=== PATIENT | female | born 1940 | race Caucasian/White ===

== ENCOUNTER 2018-05-19 12:26 | Inpatient (IN) | payer OTHER ==
[2018-05-19] MEDS ORDERED: HYDROmorphONE/DILAUDID 2 MG/ML INJ IVP ONE (12:34)
--- NOTE | 2018-05-19 12:38 | EDPHY ---
H & P Time Seen by Provider: 05/19/18 12:35 HPI/ROS: HPI: This is a 69-year-old female who presents with Chief Complaint: Left hip and elbow injury Location: Left hip and elbow Quality: Injury Duration: Prior to arrival Signs and Symptoms: No bleeding, no radiation, no numbness, no weakness, no tingling, no incontinence, + decreased range of motion, + swelling, + pain, no fever Timing: Acute Severity: 05/02 Context: Patient presents via EMS, for accidentally tripping over the curb prior to the [employer] football game this afternoon. She reports that she was walking up to the [place] and did not see the curb tripped over it. She then reports that she fell on her left side particularly her left hip and left elbow. Patient is right-hand dominant. She reports that she felt immediate pain in her left elbow on left hip. The pain remained constant and worsened with any movement. She was unable to ambulate on her own. EMS was called. Patient has a history of atrial fibrillation and takes Coumadin. She does not believe that she hit her head. Denies LOC/neck pain/dizziness/nausea/ vomiting/amnesia. Last meal was breakfast around 8:00 a.m. Modifying Factors: None Comment: ROS: A comprehensive 10 system review of systems is otherwise negative aside from elements mentioned in the history of present illness. MEDICAL/SURGICAL/SOCIAL HISTORY: Medical history: Atrial fibrillation, hypertension, hyperlipidemia Surgical history: Denies Social history: , retired, nonsmoker CONSTITUTIONAL: Polite and cooperative, mild distress elderly white female, awake and alert HEENT: Atraumatic and normocephalic, PERRL, EOMI. Wears glasses. no globe entrapment, no raccoon eyes. no Mario signs.Tympanic membranes clear. No tympanic membrane rupture. Nares patent; no septal hematoma. Oropharynx clear, no exudate and moist pink mucosa. No malocclusion. no dental trauma. Airway patent. No lymphadenopathy. NECK: supple, no midline tenderness, flexion 45 degrees, extension 45 degrees, right and left lateral flexion 45 degrees. No meningismus. Cardiovascular: Normal S1/S2, regular rate, regular rhythm, without murmur rub or gallop. PULMONARY/CHEST: Symmetrical and nontender. no crepitus. Clear to auscultation bilaterally. Good air movement. No accessory muscle usage. ABDOMEN: Soft, nondistended, nontender, no ecchymosis, no rebound, no guarding , no peritoneal signs, no masses or organomegaly. No CVAT. PELVIC: no pain with rocking; bilateral hips flexion 125 degrees, extension 30 degrees, with no pain internal rotation and no pain external rotation. BACK: No midline tenderness, no paraspinous spasm, deep tendon reflexes 2/2, no pain with straight leg raise EXTREMITIES: left hip is externally rotated and shortened. Strong pedal pulses 2/2. Tenderness over the greater trochanter. Refusal to move secondary to pain. Left ELBOW: Full extension to 180, flexion to 45, mild tenderness over medial epicondyle, mild tenderness over lateral epicondyle, moderate effusion/ecchymosis; + deformity. no clubbing, no cyanosis or edema. NEUROLOGICAL: no focal neuro deficits. GCS 15. SKIN: Warm and dry, pallor, no erythema. no rash. Good capillary refill. Source: Patient, Family, EMS Exam Limitations: No limitations Constitutional: Initial Vital Signs Temperature (C) 36.6 C 05/19/18 12:36 Heart Rate 76 05/19/18 12:36 Respiratory Rate 16 05/19/18 12:36 Blood Pressure 179/120 H 05/19/18 12:36 O2 Sat (%) 95 05/19/18 12:36 O2 Delivery Mode Room Air O2 (L/minute) 3 Allergies/Adverse Reactions: No Known Allergies Allergy (Unverified 05/19/18 12:39) Home Medications: Medication Instructions Recorded Balsalazide Disodium [Colazal (*)] 2,250 mg PO BID 05/19/18 Dorzolamide/Timolol [Cosopt (*)] 1 drops EACHEYE BID 05/19/18 Latanoprost 0.005% [Xalatan 0.005% 1 drops EACHEYE HS 05/19/18 (*)] Metoprolol Succinate Xr [Toprol Xl 25 mg PO DAILY 05/19/18 25 mg (*)] Pravastatin Sodium 20 mg PO HS 05/19/18 Quinapril HCl 5 mg PO DAILY 05/19/18 Triamcinolone Acetonide [Nasacort] 1 spray EACHNARE DAILY PRN 05/19/18 Warfarin Sodium [Coumadin 4MG (*)] [address] [facility]12 05/19/18 Warfarin Sodium [Coumadin 4MG (*)] 10 mg PO WE@12 05/19/18 Medical Decision Making - Diagnostics Imaging Results: Imaging Impressions Elbow X-Ray 05/19/18 12:34 Impression: Comminuted displaced left olecranon process fracture. Hip X-Ray 05/19/18 12:34 Impression: Angulated left humeral neck fracture. Head CT 05/19/18 12:35 Impression: Negative noncontrast CT of the brain. Results called to. Isela Holland PA-C at 1:30 PM at the time of the interpretation. Chest X-Ray 05/19/18 13:40 Impression: Negative chest. Procedures: Procedure: Splint placement. A left long-arm posterior Ortho Glass splint with 20 flexion was applied by Emergency Room pc technician. After application of the splint I returned and re- examined the patient. The splint was adequately immobilizing the joint and distal to the splint the patient's circulation and sensation was intact. ED Course/Re-evaluation: Vital signs reviewed and stable upon arrival. IV access and laboratory studies obtained including coags. Given 1 mg IV Dilaudid, IV Versed 2.5 mg and IV Zofran. Left hip x-ray, left elbow x-ray ordered Based on patient's age greater than 65 years and on Coumadin, head CT imaging ordered. 1310: At bedside with tech and imaging shows left femoral neck fracture, displaced olecranon fracture; placed in long-arm posterior splint with elbow at 20 flexion Labs reviewed and show INR 2.65, BUN 29, creatinine 1.1, H&H 13.2/39.3 Called by radiologist who advised that head CT scan shows no acute intracranial process. ED decision to consult Trauma/Orthopedics. Spoke with Dr. Aguillon who kindly agrees to admit patient-requests chest x-ray and type and screen. Spoke with Dr. Crespo's PAHeather, who consulted with her attending and agrees to consult on patient, requests long-arm posterior splint with 20 flexion and repeat lateral x-ray. Plan is for surgery today and requests for hospitalist consult regarding Concerta/FFP. Spoke with Dr. Ortega who kindly agrees to consult on the patient. No signs of neurovascular compromise/tenting of skin/compartment syndrome/ extremities and joints examined above and below area of concern and are neurovascularly intact. 1450: Chest x-ray my read shows no pneumothorax, rib fractures. This patient was seen under the supervision of my secondary supervising physician. I evaluated care for this patient independently. Discussed this patient with Dr. Tobar who did evaluate and examine the patient. Differential Diagnosis: Differential diagnosis includes but is not limited to olecranon fracture, radial fracture, ulnar fracture, elbow dislocation, hip dislocation, femur fracture. - Data Points Laboratory Results: Laboratory Results 05/19/18 12:30 05/19/18 12:30 05/19/18 05/19/18 05/19/18 12:50 12:30 12:30 WBC RBC Hgb Hct MCV MCH MCHC RDW Plt Count MPV Neut % (Auto) Lymph % (Auto) [place] % (Auto) Eos % (Auto) Baso % (Auto) Nucleat RBC Rel Count Absolute Neuts (auto) Absolute Lymphs (auto) Absolute Monos (auto) Absolute Eos (auto) Absolute Basos (auto) Absolute Nucleated RBC Immature Gran % Immature Gran # PT 28.2 SEC H SEC (12.0-15.0) INR 2.65 H (0.83-1.16) APTT 34.8 SEC SEC (23.0-38.0) Sodium 141 mEq/L mEq/L (135-145) Potassium 4.3 mEq/L mEq/L (3.3-5.0) Chloride 105 mEq/L mEq/L (97-110) Carbon Dioxide 24 mEq/l mEq/l (22-31) Anion Gap 12 mEq/L mEq/L (6-14) BUN 29 mg/dL H mg/dL (7-23) Creatinine 1.1 mg/dL H mg/dL (0.6-1.0) Estimated GFR 48 Glucose 106 mg/dL H mg/dL (70-100) Calcium 9.6 mg/dL mg/dL (8.5-10.4) Urine Color YELLOW Urine Appearance HAZY Urine pH 7.0 (5.0-7.5) Ur Specific [place] 1.019 (1.002-1.030) Urine Protein NEGATIVE (NEGATIVE) Urine Ketones NEGATIVE (NEGATIVE) Urine Blood NEGATIVE (NEGATIVE) Urine Nitrate NEGATIVE (NEGATIVE) Urine Bilirubin NEGATIVE (NEGATIVE) Urine Urobilinogen NEGATIVE EU EU (0.2-1.0) Ur Leukocyte Esterase NEGATIVE (NEGATIVE) Urine Glucose NEGATIVE (NEGATIVE) 05/19/18 12:30 WBC 4.73 10^3/uL 10^3/uL (3.80-9.50) RBC 4.29 10^6/uL 10^6/uL (4.18-5.33) Hgb 13.2 g/dL g/dL (12.6-16.3) Hct 39.3 % % (38.0-47.0) MCV 91.6 fL fL (81.5-99.8) MCH 30.8 pg pg (27.9-34.1) MCHC 33.6 g/dL g/dL (32.4-36.7) RDW 13.4 % % (11.5-15.2) Plt Count 226 10^3/uL 10^3/uL (150-400) MPV 10.4 fL fL (8.7-11.7) Neut % (Auto) 58.2 % % (39.3-74.2) Lymph % (Auto) 30.2 % % (15.0-45.0) [place] % (Auto) 10.8 % % (4.5-13.0) Eos % (Auto) 0.0 % L % (0.6-7.6) Baso % (Auto) 0.2 % L % (0.3-1.7) Nucleat RBC Rel Count 0.0 % % (0.0-0.2) Absolute Neuts (auto) 2.75 10^3/uL 10^3/uL (1.70-6.50) Absolute Lymphs (auto) 1.43 10^3/uL 10^3/uL (1.00-3.00) Absolute Monos (auto) 0.51 10^3/uL 10^3/uL (0.30-0.80) Absolute Eos (auto) 0.00 10^3/uL L 10^3/uL (0.03-0.40) Absolute Basos (auto) 0.01 10^3/uL L 10^3/uL (0.02-0.10) Absolute Nucleated RBC 0.00 10^3/uL 10^3/uL (0-0.01) Immature Gran % 0.6 % % (0.0-1.1) Immature Gran # 0.03 10^3/uL 10^3/uL (0.00-0.10) PT INR APTT Sodium Potassium Chloride Carbon Dioxide Anion Gap BUN Creatinine Estimated GFR Glucose Calcium Urine Color Urine Appearance Urine pH Ur Specific [place] Urine Protein Urine Ketones Urine Blood Urine Nitrate Urine Bilirubin Urine Urobilinogen Ur Leukocyte Esterase Urine Glucose Medications Given: Discontinued Medications Diazepam (Valium) 2.5 mg IVP EDNOW ONE Stop: 05/19/18 13:07 Last Admin: 05/19/18 13:11 Dose: 2.5 mg Hydromorphone HCl (Dilaudid) 1 mg IVP EDNOW ONE Stop: 05/19/18 12:35 Last Admin: 05/19/18 12:49 Dose: 1 mg Ondansetron HCl (Zofran) 4 mg IVP EDNOW ONE Stop: 05/19/18 12:35 Last Admin: 05/19/18 12:48 Dose: 4 mg Departure - Departure Disposition: [facility] Inpatient Acute Clinical Impression: Left displaced femoral neck fracture, Warfarin anticoagulation Closed fracture of left olecranon process Qualifiers: Encounter type: initial encounter Qualified Code(s): S52.022A - Displaced fracture of olecranon process without intraarticular extension of left ulna, initial encounter for closed fracture Condition: Fair
[2018-05-19 12:46] LABS: PLATELET COUNT 226 10^3/uL (150-400)
[2018-05-19] MEDS: ONDANSETRON 4 MG/2 ML VIAL IVP ONE (12:48)
[2018-05-19 12:54] LABS: INR 2.65 (0.83-1.16); PROTIME(PATIENT) 28.2 SEC (12.0-15.0)
[2018-05-19] MEDS ORDERED: DIAZEPAM 5 MG/ML 1 ML SYR IVP ONE (13:06)
[2018-05-19] MEDS ORDERED: ONDANSETRON 4 MG/2 ML VIAL IVP PRN ×2 (14:11→23:59)
[2018-05-19] MEDS ORDERED: LR 1,000 ML IV SCH ×2 (14:30→23:45)
[2018-05-19] MEDS ORDERED: ceFAZolin 2 GM/DEXTROSE 100 ML IV ONE (14:41)
--- NOTE | 2018-05-19 14:42 | PDGENHP ---
History and Physical - Chief Complaint left hip and elbow pain - History of Present Illness 77 y/o female visiting [place] with her and daughter-in law for the [employer] football game. She tripped on "cobblestones"near the entry of [place] landing on her left side breaking her fall with her left arm. She denies head injury, LOC. She was transported to [facility] ED and was seen by Isela Holland PA-C and trauma surgical consultation was requested. She was found to have fractures of the left elbow and left hip History Information - Allergies/Home Medication List Allergies/Adverse Reactions: No Known Allergies Allergy (Unverified 05/19/18 12:39) Home Medications: Balsalazide Disodium [Colazal (*)] 2,250 mg PO BID 05/19/18 [Last Taken 08:00] Dorzolamide/Timolol [Cosopt (*)] 1 drops EACHEYE BID 05/19/18 [Last Taken 08:00] Latanoprost 0.005% [Xalatan 0.005% (*)] 1 drops EACHEYE HS 05/19/18 [Last Taken 05/18/18 21:00] Metoprolol Succinate Xr [Toprol Xl 25 mg (*)] 25 mg PO DAILY 05/19/18 [Last Taken 05/19/18 08:00] Pravastatin Sodium 20 mg PO HS 05/19/18 [Last Taken 05/18/18 21:00] Quinapril HCl 5 mg PO DAILY 05/19/18 [Last Taken 05/19/18 08:00] Triamcinolone Acetonide [Nasacort] 1 spray EACHNARE DAILY PRN 05/19/18 [Last Taken 05/19/18 08:00] Warfarin Sodium [Coumadin 4MG (*)] 8 mg PO SUMOTUTHFRSA@12 05/19/18 [Last Taken 05/18/18 12:00] Warfarin Sodium [Coumadin 4MG (*)] 10 mg PO WE@12 05/19/18 [Last Taken 05/16/18] I have personally reviewed and updated: family history, medical history, social history, surgical history - Past Medical History atrial fibrillation, arthritis, hypertension, hyperlipidemia - Family History Positive for: non-pertinent - Social History Smoking Status: Former smoker Alcohol Use: None Drug Use: None Additional social history: here with and daughter in law/they live in [facility] Review of Systems Review of Systems: EENMT: Reports: ear pain, other (prior right retinal detachment with vision loss ) Cardiac: Reports: no symptoms Respiratory: Reports: no symptoms, orthopnea Genitourinary: Reports: no symptoms Muscolosketal: Reports: joint pain, joint swelling Neurological: Reports: other (denies paresthesias) Physical Exam Physical Exam: Temp Pulse Resp BP Pulse Ox 36.6 C 59 L 18 180/74 H 99 05/19/18 12:36 05/19/18 14:00 05/19/18 14:00 05/19/18 14:00 05/19/18 14:00 O2 (L/minute) 2 Constitutional: other (pleasant elderly female in mild distress) Eyes: PERRL, EOMI Ears, Nose, Mouth, Throat: moist mucous membranes, other (TMs clear with moderate cerumen in EACs) Cardiovascular: regular rate and rhythym, pulses symmetric bilaterally Peripheral Pulses: 4+: dorsalis-pedis (R), dorsalis-pedis (L) Respiratory: no respiratory distress, clear to auscultation Gastrointestinal: normoactive bowel sounds, soft, non-tender abdomen Genitourinary: other (sensation of bladder fullness) Skin: warm Musculoskeletal: other (swelling left elbow/skin intact, tenderness left hip with external rotation ) Neurologic: AAOx3, sensation intact bilaterally, CN II-XII Intact, other (DTS symmetrical) Psychiatric: interacting appropriately, not anxious, not encephalopathic Lab Data & Imaging Review 05/19/18 12:30 05/19/18 12:30 WBC 4.73 10^3/uL (3.80-9.50) 05/19/18 12:30 RBC 4.29 10^6/uL (4.18-5.33) 05/19/18 12:30 Hgb 13.2 g/dL (12.6-16.3) 05/19/18 12:30 Hct 39.3 % (38.0-47.0) 05/19/18 12:30 MCV 91.6 fL (81.5-99.8) 05/19/18 12:30 MCH 30.8 pg (27.9-34.1) 05/19/18 12:30 MCHC 33.6 g/dL (32.4-36.7) 05/19/18 12:30 RDW 13.4 % (11.5-15.2) 05/19/18 12:30 Plt Count 226 10^3/uL (150-400) 05/19/18 12:30 MPV 10.4 fL (8.7-11.7) 05/19/18 12:30 Neut % (Auto) 58.2 % (39.3-74.2) 05/19/18 12:30 Lymph % (Auto) 30.2 % (15.0-45.0) 05/19/18 12:30 [place] % (Auto) 10.8 % (4.5-13.0) 05/19/18 12:30 Eos % (Auto) 0.0 % (0.6-7.6) L 05/19/18 12:30 Baso % (Auto) 0.2 % (0.3-1.7) L 05/19/18 12:30 Nucleat RBC Rel Count 0.0 % (0.0-0.2) 05/19/18 12:30 Absolute Neuts (auto) 2.75 10^3/uL (1.70-6.50) 05/19/18 12:30 Absolute Lymphs (auto) 1.43 10^3/uL (1.00-3.00) 05/19/18 12:30 Absolute Monos (auto) 0.51 10^3/uL (0.30-0.80) 05/19/18 12:30 Absolute Eos (auto) 0.00 10^3/uL (0.03-0.40) L 05/19/18 12:30 Absolute Basos (auto) 0.01 10^3/uL (0.02-0.10) L 05/19/18 12:30 Absolute Nucleated RBC 0.00 10^3/uL (0-0.01) 05/19/18 12:30 Immature Gran % 0.6 % (0.0-1.1) 05/19/18 12:30 Immature Gran # 0.03 10^3/uL (0.00-0.10) 05/19/18 12:30 PT 28.2 SEC (12.0-15.0) H 05/19/18 12:30 INR 2.65 (0.83-1.16) H 05/19/18 12:30 APTT 34.8 SEC (23.0-38.0) 05/19/18 12:30 Sodium 141 mEq/L (135-145) 05/19/18 12:30 Potassium 4.3 mEq/L (3.3-5.0) 05/19/18 12:30 Chloride 105 mEq/L (97-110) 05/19/18 12:30 Carbon Dioxide 24 mEq/l (22-31) 05/19/18 12:30 Anion Gap 12 mEq/L (6-14) 05/19/18 12:30 BUN 29 mg/dL (7-23) H 05/19/18 12:30 Creatinine 1.1 mg/dL (0.6-1.0) H 05/19/18 12:30 Estimated GFR 48 05/19/18 12:30 Glucose 106 mg/dL (70-100) H 05/19/18 12:30 Calcium 9.6 mg/dL (8.5-10.4) 05/19/18 12:30 Visualized and Interpreted Chest x-ray results: Yes Chest X-Ray results: no infiltrate, other (no fractures, pneumo/hemo thorax) Visualized and Interpreted imaging results: Yes Interpretation: left olecranon fracture, left femoral neck fracture Assessment & Plan Assessment: Closed fracture of left olecranon process (Acute) Left displaced femoral neck fracture (Acute) Warfarin anticoagulation (chronic) Hypertension Hyperlipidemia Plan: reverse anticoagulation with FFP ortho consult for definitive fracture management Admit to trauma service/hospitalist consult
[2018-05-19] MEDS ORDERED: D5W 1/2 NS 1,000 ML IV SCH (14:45)
--- NOTE | 2018-05-19 15:37 | PDMN ---
Medical Necessity Medical necessity: Pt meets IP criteria per & DOMINIQUE PG-MTR (Multiple Trauma); est los >2 mn for eval/tx of L femur & L elbow fxs s/p fall; hx AFIB on AC; admit for further monitoring, anticoagulation reversal with FFP, Ortho consult w /surgical intervention, pain management, IVFs & therapies; per H&P & order 05/19
[2018-05-19] MEDS ORDERED: NS 500 ML IV ONE (15:40)
[2018-05-19] MEDS ORDERED: FLUTICASONE NASAL 120 SPRAYS/16 GM MDI EACHNARE PRN (15:40)
--- NOTE | 2018-05-19 16:36 | GCON ---
DATE OF CONSULTATION: 05/19/2018 CHIEF COMPLAINT: Fall. HISTORY OF PRESENT ILLNESS: This 77-year-old female, accompanied by her as well as daughter- in-law who live in [place], are in [place] for the [employer] football game. She was walking to the game, c aught her left foot on something, fell on her left side, and put her left arm out. She initially imm ediately had pain in the left arm as well as left hip. Notably, she reports that her EKG has shown a left bundle branch block since "childhood." She exercises 5 days a week. Does not get any chest pa in or shortness of breath. She does have atrial fibrillation. Is on Coumadin. She had a recent ech ocardiogram, which she reports as being normal. She has had stress tests in the past and has never b een told that those are abnormal. PAST MEDICAL/SURGICAL HISTORY: 1. Atrial fibrillation with rapid ventricular response. 2. Hypertension. 3. Hyperlipidemia. 4. History of a retinal detachment. 5. History of colitis. MEDICATIONS: Please see medication reconciliation. ALLERGIES: No known drug allergies. SOCIAL HISTORY: She drinks red wine. She does not smoke. She is accompanied by her . She i s a college football fan. FAMILY HISTORY: Reviewed and noncontributory. REVIEW OF SYSTEMS: A 10-point review of systems is conducted and is negative except per HPI. PHYSICAL EXAM: VITAL SIGNS: Blood pressure 180/74, heart rate 59, respiration rate 18, satting 95% on room air. Temperature is 36.6. GENERAL: Ms. Real is a pleasant female who appears somewhat unc omfortable, in mild distress. HEENT: Shows her to be normocephalic, atraumatic. CARDIOVASCULAR: R egular rate and rhythm. There are no murmurs, rubs, or gallops. PULMONARY: Lungs clear to ausculta tion bilaterally. ABDOMEN: Soft, nontender, nondistended. SKIN: Shows no rash. : No [place]. N EUROLOGIC: Exam shows her to be alert and oriented x3. She is moving all extremities. EXTREMITIES: Shows her left leg to be slightly externally rotated. Her left arm is in a splint. LABS: CBC is normal. INR is 2.6. BUN is 29, creatinine is 1.1. DATA: 1. Discussed this with JULI Romero. They will plan to take her to the OR today. 2. I personally viewed and interpreted her EKG. This shows sinus rhythm. She does have a left bund le branch block. 3. I reviewed her elbow x-ray. This shows an olecranon fracture. 4. I reviewed her hip film. This shows a hip fracture. 5. I reviewed her chest x-ray. This is normal with nothing acute. 6. I reviewed her head CT scan. This is negative. IMPRESSION AND PLAN: 1. Hip fracture and elbow fracture: Plan is to take her to the operating room today. She is susie steward getting fresh frozen plasma to correct her INR. An INR check has been planned post fresh frozen plasma. We will recheck an INR in the morning. We will hold her Coumadin. 2. Perioperative evaluation: She is able to complete more than 4 metabolic equivalents (METs). She has no significant valvular disease on my exam. EKG shows a left bundle branch block, which she rep orts is old. I think she is reasonable wrist to go straight to the operating room for this urgent schwab rgery. 3. Mildly elevated BUN and creatinine: We have no baseline. I will give her 500 cc of normal salin e for now. We will recheck this again in the morning. 4. Atrial fibrillation: We will continue her beta rubina perioperatively. Hold her anticoagulatio n as above. Her CHADS2-VASc is approximately 4. This places her at moderate risk for a stroke. 5. Colitis: We will continue her balsalazide. Thank you for involving Hospital Medicine in the care of Ms. Real. We will continue to follow with you. /[id number]/MODL
--- NOTE | 2018-05-19 17:01 | GCON ---
HPI: Patient is a pleasant 77-year-old RHD female who presents to the ED for left hip and elbow pain following a fall which occurred today, 05/19/2018 [facility]. She states she was walking up to the ticket stands, did not see the curb, tripped over it and landed on her left side, immediately experiencing pain to both her left hip and her left elbow. She was unable to ambulate at that time. EMS was called and she was taken to [facility]. She denies any other complaint at this time. No history of previous injury or fall to the extremity. She denies any abnormal numbness or tingling, worsening change in distal range of motion or strength, change in heat or color of her extremities, cramping in her calves or ankles. Prior to injury the patient is a fairly active 77-year-old who regularly goes to the gym to use the exercise bicycle 4-5 times a week. Ambulates without use of assistive devices and no h/o other recent falls. She is visiting from [place], [place]. N.p.o. status: Breakfast at 0800. Last warfarin dose: 12:00 on 05/18/18. The patient is able to make her own surgical decisions. The patient is full code. REVIEW OF SYSTEMS: Otherwise, 10-point review of systems was negative except for as stated above. PAST MEDICAL HISTORY: Pertinent for atrial fibrillation, hypertension, hyperlipidemia. No history of WA, blood clots or bleeding disorders otherwise noted. PAST SURGICAL HISTORY: Pertinent for retinal detachment surgery approximately 20 years ago. There were no problems with bleeding or anesthesia at that time. ALLERGIES: No known drug allergies. SOCIAL HISTORY: The patient is and retired. No history of IVDU or smoking. Occasional alcohol use with 1-2 glasses of wine. Patient is visiting from the [facility] and is here to watch her grandson play in the [employer]. MEDICATIONS: Pravastatin, quinapril, metoprolol, Blephamide, and warfarin for history of atrial fibrillation. FAMILY HISTORY: Pertinent for son with [id number]-[id number]-[id number]. No history of WA , CVD, blood clots, bleeding disorders, diabetes or cancer otherwise noted. PHYSICAL EXAM: The patient is alert and oriented, able to respond appropriately to questions and command. Her and her [id number]-jcy are in the room with her. She is in mild distress. HEENT: Patient wears glasses. She is normocephalic, atraumatic. EOMs are intact. Hearing intact. Moist buccal mucosa. No lymphadenopathy. NECK: Soft, supple, NTTP throughout. Negative Lhermitte. Negative Spurling B/ L. No lymphadenopathy noted. CV: Nonlabored breathing. No diaphoresis. ABDOMEN: Soft, nontender, nondistended. BACK: NTTP throughout with negative pelvic squeeze test. MUSCULOSKELETAL: Focalized exam of bilateral upper extremities: Upon takedown of splint ecchymosis is noted with 2+ non-pitting edema to her left olecranon. No skin lacerations or breakthrough seen, skin intact. No erythema. TTP over left olecranon, otherwise, NTTP throughout. Limited AROM of left elbow secondary to severe pain to the patient; is able to wiggle all fingers B/L. DNVI B/L in her bilateral upper extremities with no focal deficits noted. All compartments soft with negative passive stretch test. Brisk cap refill present B/L. Focalized exam of bilateral lower extremities: Left hip is shortened and externally rotated. There is no erythema, edema, ecchymosis or calor. TTP over left GT, otherwise NTTP throughout. Logroll positive. Negative pelvic squeeze test. Limited AROM of left hip secondary to severe pain to the patient and refusal to move the hip. She does otherwise have FROM of left ankle and foot. Her gross sensation is intact with DNVI and no focal deficits noted. Calves are soft, supple, and NTTP B/L with negative bilateral Homans. Brisk cap refill B/L. All compartments soft with skin intact. Negative passive stretch test. Secondary survey of RLE is negative. NEURO: She is alert and oriented, able to respond appropriately to questions. Mild distress. Appears oriented to place and time. SKIN: Warm and dry. No other rashes or lesions noted. A secondary survey is negative except for as stated above. VITALS: She is afebrile. Heart rate is regular at 76, respiratory rate at 16, blood pressure 179/120, oxygen 95%. SECONDARY SURVEY: Negative except for as stated above. LABS: Obtained, which showed an INR of 2.65 and a PTT of 28.2. Repeat INR after 2U FFP provided by medicine team - 1.7. X-RAYS: Two views of her left elbow show a displaced olecranon fracture with some comminution, no other fractures, malalignments or deformities noted. Two views of the left hip show a superiorly displaced femoral neck (Garden IV) fracture with no other fractures, malalignments, or deformities noted. ASSESSMENT: Left elbow olecranon fracture, closed; and Garden IV left hip femoral neck fracture, closed. PLAN: Both injuries will require surgery - ORIF L elbow, bipolar L hip. NPO x meds. Medicine team will assist to optimize her INR to have surgery today, , and another 2U FFP have been ordered; they will also assure that she is medically optimized and clear for surgery. Regarding the left elbow, we have asked that she be placed in a splint at 20 degrees flexion and repeat x- rays. Additionally, she is NWB to the left upper extremity as well as the left lower extremity, bedrest, ice, elevation prn. D/c warfarin until post-op anticoagulation is appropriate - ie. 12-24 hours post-op. Apply TALIA brody & KATHRYNs to RLE. We spoke verbally with Dr Ortega, and he states that pending EKG clearance, she will be optimized for surgery. Additional questions/ concerns can be directed to our office at [phone]. Advised patient to watch for any worsening pain, abnormal numbness or tingling, worsening change in heat or color of her extremities, cramping in her calves or ankles, difficulty breathing, and to seek immediate medical attention if seen. The patient was discussed with and seen by Dr. Crespo. Witnessed, informed consent was obtained by Dr Crespo, and all of the patient's and family's questions were answered. /[id number]/MODL MTDD
[2018-05-19 17:39] LABS: INR 1.77 (0.83-1.16); PROTIME(PATIENT) 20.7 SEC (12.0-15.0)
[2018-05-19] MEDS ORDERED: NS 1,000 ML IV SCH (18:00)
[2018-05-19] MEDS ORDERED: ROCURONIUM 50 MG/5 ML VIAL ONE (19:27)
[2018-05-19] MEDS ORDERED: PROPOFOL 200 MG/20 ML VIAL ONE (19:27)
[2018-05-19] MEDS ORDERED: fentaNYL 100 MCG/2 ML INJ ONE ×3 (19:27→22:49)
[2018-05-19] MEDS ORDERED: LIDOCAINE 2% 100 MG/5 ML SYR ONE (19:27)
[2018-05-19] MEDS ORDERED: CEFAZOLIN 2 GM/DEXTROSE/100 ML BAG IV ONE (19:39)
--- NOTE | 2018-05-19 19:40 | PDANEPAE ---
ANE History of Present Illness traumatic fall here for ORIF ANE Past Medical History - Cardiovascular History Hx Hypertension: Yes Hx Arrhythmias: Yes Hx Chest Pain: No Hx Coronary Artery / Peripheral Vascular Disease: No Hx CHF / Valvular Disease: No Cardiovascular History Comment: A Fib - Pulmonary History Hx COPD: No Hx Asthma/Reactive Airway Disease: No Hx Oxygen in Use at Home: No Hx Sleep Apnea: No - Endocrine History Hx Diabetes: No - GI History Gastrointestinal History Comment: Colitis ANE Review of Systems Review of Systems: - Exercise capacity Exercise capacity: >=4 METS ANE Patient History - Allergies Allergies/Adverse Reactions: No Known Allergies Allergy (Unverified 05/19/18 12:39) - Home Medications Home Medications: Balsalazide Disodium [Colazal (*)] 2,250 mg PO BID 05/19/18 [Last Taken 08:00] Dorzolamide/Timolol [Cosopt (*)] 1 drops EACHEYE BID 05/19/18 [Last Taken 08:00] Latanoprost 0.005% [Xalatan 0.005% (*)] 1 drops EACHEYE HS 05/19/18 [Last Taken 05/18/18 21:00] Metoprolol Succinate Xr [Toprol Xl 25 mg (*)] 25 mg PO DAILY 05/19/18 [Last Taken 05/19/18 08:00] Pravastatin Sodium 20 mg PO HS 05/19/18 [Last Taken 05/18/18 21:00] Quinapril HCl 5 mg PO DAILY 05/19/18 [Last Taken 05/19/18 08:00] Triamcinolone Acetonide [Nasacort] 1 spray EACHNARE DAILY PRN 05/19/18 [Last Taken 05/19/18 08:00] Warfarin Sodium [Coumadin 4MG (*)] 8 mg PO SUMOTUTHFRSA@12 05/19/18 [Last Taken 05/18/18 12:00] Warfarin Sodium [Coumadin 4MG (*)] 10 mg PO WE@12 05/19/18 [Last Taken 05/16/18] - NPO status NPO Status: no food or drink >8 hours - Anes Hx Anes Hx: no prior problems - Smoking Hx Smoking Status: Former smoker - Alcohol Use Alcohol Use: None - Family Anes Hx Family Anes Hx: none ANE Labs/Vital Signs - Labs Result Diagrams: 05/19/18 12:30 05/19/18 12:30 - Vital Signs Blood Pressure: 160/89 Heart Rate: 75 Respiratory Rate: 19 O2 Sat (%): 98 Height: 167.64 cm Weight: 73.028 kg ANE Physical Exam - Airway Neck exam: FROM Mallampati Score: Class 2 Mouth exam: normal dental/mouth exam Mouth image: 1 - chipped - Pulmonary Pulmonary: no respiratory distress, clear to auscultation - Cardiovascular Cardiovascular: regular rate and rhythym, no murmur, rub, or gallop - ASA Status ASA Status: III ANE Anesthesia Plan Anesthesia Plan: general endotracheal anesthesia
[2018-05-19] MEDS ORDERED: BUPIVACAINE/EPI 0.5% 30 ML SDV ONE (20:32)
[2018-05-19] MEDS ORDERED: ONDANSETRON 4 MG/2 ML VIAL ONE (20:47)
[2018-05-19] MEDS ORDERED: DEXAMETHASONE 4 MG/ML VIAL ONE (20:47)
[2018-05-19] MEDS ORDERED: *INFUSION*TRANEX ACID 1,000 MG/NS 100 ML IV ONE (21:30)
[2018-05-19] MEDS ORDERED: ROPI/epiNEPH/KETOROLAC JOINT COCKTAIL IU ONE ×2 (21:30→23:30)
[2018-05-19] MEDS ORDERED: BACITRACIN ZINC 14.2 GM OINTTUBE TP ONE (21:42)
[2018-05-19 22:22] LABS: INR 1.63 (0.83-1.16); PROTIME(PATIENT) 19.5 SEC (12.0-15.0)
[2018-05-19] MEDS ORDERED: ceFAZolin 1 GM VIAL ONE (22:48)
[2018-05-19] MEDS ORDERED: oxyCODONE IR 5 MG TAB PO PRN (23:59)
[2018-05-19] MEDS ORDERED: PROMETHAZINE HCL 25 MG/ML INJ IVP PRN (23:59)
[2018-05-19] MEDS ORDERED: HYDROCODONE/APAP 5/325 TAB PO PRN (23:59)
[2018-05-19] MEDS ORDERED: DIAZEPAM 5 MG/ML 1 ML SYR IVP PRN (23:59)
[2018-05-19] MEDS ORDERED: NALOXONE HCL 0.4 MG/ML INJ IVP PRN (23:59)
[2018-05-19] MEDS ORDERED: fentaNYL 100 MCG/2 ML INJ IVP PRN (23:59)
[2018-05-19] MEDS ORDERED: ACETAMINOPHEN 500 MG TAB PO PRN (23:59)
[2018-05-19] MEDS ORDERED: CYCLOBENZAPRINE 10 MG TAB PO PRN (23:59)
[2018-05-19] MEDS ORDERED: METOCLOPRAMIDE 10 MG/2 ML VIAL IVP PRN (23:59)
[2018-05-19] MEDS ORDERED: HYDROmorphONE/DILAUDID 2 MG/ML INJ IVP PRN (23:59)
[2018-05-19] MEDS ORDERED: diphenhydrAMINE 25 MG CAP PO PRN (23:59)
[2018-05-19] MEDS ORDERED: DIPHENOXYLATE/ATROPINE LOMOTIL 1 TAB PO PRN (23:59)
--- NOTE | 2018-05-19 23:59 | POSTOPPROG ---
Post Op Note Date of Operation: 05/19/18 Surgeon: Mando Crespo Mathematician: PARVIN Collins Anesthesia: GET(General Endotracheal) Pre-op Diagnosis: Left olecranon fracture and left femoral neck fracture Post-op Diagnosis: Left olecranon fracture and left femoral neck fracture Procedure: Left olecranon ORIF and left hemiarthroplasty Inf/Abcess present in the surg proc area at time of surgery?: No Depth: Deep Incisional (Fascial) EBL: 100-500 Complications: None. Drains: Hemovac
--- NOTE | 2018-05-20 00:01 | POSTANESTH ---
Post Anesthetic Evaluation Cardiovascular Status: Normal, Stable, Similar to Pre-Op Cond Respiratory Status: Normal, Stable, Similar to Pre-op Cond. Level of Consciousness/Mental Status: Can Participate in Eval, Alert and Oriented Pain Control: Adequate, Prn Tx Ordered Nausea/Vomiting Control: Adequate, Prn Tx Ordered Complications Possibly Related to Anesthesia: None Noted
[2018-05-20] MEDS ORDERED: ONDANSETRON 4 MG/2 ML VIAL ONE (00:37)
[2018-05-20] MEDS: BALSALAZIDE DISODIUM 750 MG CAP PO SCH ×3 (02:10→20:44)
[2018-05-20] MEDS: FAMOTIDINE 20 MG TAB PO SCH ×3 (02:10→20:44)
[2018-05-20] MEDS: PRAVASTATIN SODIUM 20 MG TAB PO SCH ×2 (02:11→20:44)
[2018-05-20] MEDS: DORZOLAMIDE/TIMOLOL 10 ML OPHT.BTL EACHEYE SCH ×3 (03:48→19:55)
[2018-05-20] MEDS: LATANOPROST 0.005% 2.5 ML OPHT DROPS EACHEYE SCH ×2 (03:48→20:45)
--- NOTE | 2018-05-20 05:03 | GOP ---
DATE OF OPERATION: 05/19/2018 SURGEON: Mando Crespo MD SUBMARINE ELEMENT COORDINATOR: JULI Stevenson. ANESTHESIA: General. ANESTHESIOLOGIST: Dr. Davis. PREOPERATIVE DIAGNOSIS: Closed left olecranon fracture. POSTOPERATIVE DIAGNOSIS: Closed left olecranon fracture. PROCEDURE PERFORMED: Open reduction, internal fixation of left olecranon fracture. FINDINGS: Left intra-articular olecranon fracture with metaphyseal comminution , though no significant or obvious appreciable articular comminution or depression, nor any cortical comminution. Bone quality was consistent with osteopenia vs osteoporosis. Anatomic reduction was achieved. SPECIMENS: None. ESTIMATED BLOOD LOSS: 30 cc. INDICATIONS: This is a 77-year-old female, who suffered a fall today while entering [employer] for the [email or web address] football game, injuring her left elbow and hip. I was consulted as the on-call orthopedic surgeon for her displaced fractures. The risks, benefits, and alternatives to left elbow surgery were described and discussed with the patient and family. All questions answered prior to surgery. They provided a signed and witnessed informed consent, which was placed in her chart. Please note that the signed for the patient because she was unable to visualize or see the consent form. This was witnessed by our nurse. DESCRIPTION OF PROCEDURE: The patient was identified in the preop holding area , and her left elbow was signed, designating the operative site. The patient was confirmed in bilateral lower extremity SCDs and right lower extremity TALIA hose. She was taken back to the operating room, placed supine on the OR table, and general anesthesia was obtained. She was then turned to the lateral decubitus position with an axillary roll placed under the right upper extremity , which was forward flexed onto a well-padded arm board. Pillows were placed between both knees and ankles. Down leg ankle was wrapped with foam and crate padding as well as around the proximal fibula was wrapped with foam eggcrate padding. The left upper extremity was wrapped with cast padding and a nonsterile tourniquet and placed over a well-padded elbow buttress. The left upper extremity was then prepped and draped in the usual sterile manner. Mini C -arm was also prepped and draped in usual manner. Esmarch exsanguination was used to inflate the tourniquet to 250 mmHg. A standard curvilinear incision was placed over the dorsal aspect of the elbow, starting approximately 1 cm proximal to the olecranon tip and extending down distally a total of approximately 7 cm. The curve was kept lateral to the olecranon tip. Full-thickness dermal incision was made. Abundant hematoma was identified just deep to the skin incision. This was carefully irrigated and removed with a rongeur, curette, as well as a lap. Irrigation was used to further remove the hematoma. Careful dissection was taken down to the dorsal cortex of the olecranon and proximal ulna. Subperiosteal dissection was kept to a minimum, however, was used along the dorsal aspect and both sides in order to expose appropriate position for a distal drill hole as well as proximally at the level of the fracture site in order to expose all edges of the fracture. All interposed soft tissue and hematoma were removed and irrigated. The joint was irrigated and inspected. A reduction was achieved and provisionally maintained with 2 reduction tenaculums. 2.062 K-wires were then placed in a proximal to distal manner just inferior to the articular surface of the proximal ulna and advanced out obliquely to the far cortex of the volar proximal radius. Once these were in place, the fracture was relatively stable. Images were taken to assure appropriate position of the hardware. Next, through the distal drill hole, a [id number] type tension band construct was created with an 18-gauge wire. This was passed deep to the triceps tendon substance and directly proximal to the 2 K-wires. It was crimped both medially and laterally and then carefully twisted down and tensioned in order to achieve the appropriate amount of tension and standard tension band construct. Excellent reduction and compression of the fracture site were achieved. Finalized images were taken with the mini C-arm to confirm appropriate position of the hardware as well as reduction at the fracture site. The excess wire was cut, and then the crimped ends were bent down along the cortex of the ulna. The 0.062 K-wires were bent down upon themselves and then rotated 180 degrees and tapped down into the soft tissues just proximal to the insertion sites, both medial and lateral. Finalized images were taken. These were printed and saved for the patient's chart. The wound was then copiously irrigated with sterile saline and closure was begun. The deep bursal and/or fascial layers were closed with multiple 0 Vicryl sutures. 2-0 Vicryl was used to reapproximate the skin edges of the deep dermal layer. 3-0 nylon horizontal mattress interrupted sutures were used to close the skin. Please note, the tourniquet was dropped prior to skin closure and hemostasis was confirmed. Sterile postop surgical dressings were applied. The left upper extremity was placed in a long-arm posterior splint. The anesthesia service then assisted to reposition the patient for her left hip surgery. Please see next operative report for this dictation. TOURNIQUET TIME: 45 minutes at 250 mmHg. DRAINS: None. IMPLANTS: 0.062 K-wires x2 with 18-gauge cerclage wire. COMPLICATIONS: None. DISPOSITION: Please see next operative report for L hip surgery, as this was the 1st surgery of 2 during her OR stay. /[id number]/MODL MTDD
--- NOTE | 2018-05-20 05:18 | GOP ---
DATE OF OPERATION: 05/19/2018 SURGEON: Mando Crespo MD DISPATCH OFFICER: JULI Stevenson. ANESTHESIA: General. ANESTHESIOLOGIST: Dr. Davis. PREOPERATIVE DIAGNOSIS: Displaced left femoral neck fracture. POSTOPERATIVE DIAGNOSIS: Displaced left femoral neck fracture. PROCEDURE PERFORMED: Left hip bipolar hemiarthroplasty. FINDINGS: Comminuted left femoral neck fracture with complete displacement, Garden IV. Bone quality was consistent with osteopenia. There was no significant arthritis at the femoral acetabular joint. SPECIMENS: None. ESTIMATED BLOOD LOSS: 200 cc. INDICATIONS: This is a 77-year-old female who suffered a fall, injuring her left hip, sustaining a femoral neck fracture with complete displacement. Given the above, surgery was recommended as listed above. The risks, benefits, and alternatives were discussed. All questions were answered prior to surgery. A signed informed consent was obtained and placed in the patient's chart. Please see history and physical for additional information. DESCRIPTION OF PROCEDURE: The patient was identified in the preoperative holding area, and her left hip was signed and designated as the operative site. The patient was confirmed in right lower extremity TALIA hosvivi and SCDs. She was in the operating room at this point as I had already performed a left elbow surgery. She received IV TXA prior to incision. With her in the lateral decubitus position and an axillary roll under the right shoulder, the right upper extremity was forward flexed on a well padded armboard. The left lower extremity was in her posterior long-arm splint and carefully placed over a sling in order to position her shoulder in neutral abduction approximately 7 degrees of forward elevation and neutral internal/external rotation. The down leg was padded around the proximal fibula and around heel and ankle, in addition to the heavily padded OR table. Left lower extremity was then prepped and draped in usual sterile manner. A standard posterolateral approach was utilized for the surgery. A 10 cm curvilinear incision was placed directly over the greater trochanter. Full- thickness dermal incision was made and careful dissection was taken down through copious fat. The IT band was identified and divided in parallel with its fibers and then curved up proximally once it was beyond the greater trochanter into the muscle fibers of the gluteus melanie. The muscle fibers were carefully split and any small vessels were coagulated proximally. With some abduction, the lateral trochanteric bursa was carefully excised. With sequential internal rotation, subperiosteal dissection was carried along the posterior aspect of the greater trochanter. Multiple vessels were coagulated as the short external rotators were released from their insertion site on the proximal femur. The piriformis tendon was identified and tagged and then released from its insertion site at the femur. A capsulotomy was made in an upside-down hockey-stick type orientation in order to carefully open the joint. Copious hemarthrosis was encountered and suction irrigated. Multiple tagging sutures were placed along the capsule and used for retraction as well as eventual repair after the surgery. With the hip in the appropriate internally rotated position, a proximal femoral neck cut was made with an oscillating saw. The bony fragments were removed from the hip surgical site. The neck cut was made 1 fingerbreadth above the lesser trochanter. Next, a threaded awl was used to achieve purchase within the femoral head, and then with careful rotation and a hip skid, the ligamentum teres was cut with a curved Grigsby, and the femoral head was delivered out of the wound. This was sized to somewhere between 45 and 46 mm in diameter at the maximum diameter. A trial ball was then placed within the acetabulum and was found to have a very good fit with 45 mm diameter. The wound was copiously irrigated with pulsatile lavage. With the hip internally rotated approximately 90 degrees and adducted, the proximal femur was delivered to nd with the assistance of a Valenzuela skid as well as proximal femoral elevator. A blunt Hohmann was placed along the neck for additional exposure. A box osteotome was then used to enter the proximal femoral canal. With valgus alignment, the proximal femur was reamed up to appropriate size of an approximate size 7 reamer with appropriate cortical chatter. Next, sequential broaching was performed and a size 7 broach was found to be of the appropriate fit. Trialing was then performed with a 45 mm outer diameter, 26 mm inner diameter bipolar trial with a +0 neck. The appropriate reconstruction was achieved with negative rectus test, very good stability with internal rotation at 90 degrees of flexion, as well as sleeping position. Leg lengths were appropriate. Traction shrug test was also appropriate for tensioning. The trial was then removed. The broach was removed as well, and this was noted to be placed at approximately 25 degrees of anteversion. The femoral canal was then copiously irrigated with pulsatile lavage. The wound was further irrigated with lavage. A size 7 secure fit [place] femoral stem was then carefully malleted down into position with approximately 25 degrees of anteversion. This was malleted down to the appropriate depth with very careful tapping as I avoided any kind of increased risk for fracture. Very nice fit was achieved. The stem was stoutly tugged in order to assure that it was well seated and well fixed. With this now well seated in the proximal femur, trialing was again performed to assure that the +0 neck was the appropriate length. Length and offset were found to be appropriate. Stability was maintained and confirmed. The hip was again dislocated gently, trial components were removed, and the formal 26 mm x 45 mm bipolar hemiarthroplasty components were implanted using standard technique. Excellent Pop taper engagement was achieved and it was found to be well fixed after it was attempted to be dislodged. The replaced hip was found to be very stable with all final testing. A drain was placed around the neck of the femur. Final reduction was performed. The wound was further copiously irrigated with pulsatile lavage. Closure was then begun. The capsular layer was closed through drill holes in the proximal femur, i.e. greater trochanter. The proximal portion of the capsulotomy was closed side-to- side with multiple #1 Ethibond. Once the capsulotomy was entirely closed, the IT band was closed with multiple #1 Ethibond. The deep fat space, which was relatively copious, was closed with multiple 0 Vicryl sutures. 2-0 Vicryl was used to close the deep dermal layer. Winigan were used to close the skin. Sterile postoperative surgical dressings were applied. An abduction pillow was applied. TALIA hose and SCD applied to the left lower extremity. The patient was then returned to the supine position, and the anesthesia service took over to wake her up. TOURNIQUET TIME: None. DRAINS: One Davol drain. IMPLANTS: [place] Secur-Fit Max press-fit femoral stem with C-taper L-fit head and bipolar component (26 x 45 mm). COMPLICATIONS: None. DISPOSITION: The patient was extubated and transferred to the PACU in stable condition. /[id number]/MODL MTDD
[2018-05-20] MEDS: ceFAZolin 2 GM/DEXTROSE 100 ML IV SCH ×2 (05:33→14:13)
--- NOTE | 2018-05-20 07:32 | HOSPPROG ---
Hospitalist Progress Note Assessment/Plan: 77F presents with mechanical fall, L elbow and L hip fractures s/p ORIF # a-fib - currently in NSR on my exam - cont tele x 24 hours then dc - con metop - hold warfarin; [id number], 4% annual stroke risk - restarting today # LBBB - chronic per patient # coagulopathy - reversed with FFP x 4U yesterday - INR pending today # colitis - balsalazide # htn - cont metop - restart quinapril today # dvt ppx - lovenox Subjective: s/p elbow ORIF and L NAIDA; no CP or SOB; +sensation in L hand and L foot Objective: Vital Signs Temp Pulse Resp BP Pulse Ox 36.6 C 67 16 147/81 H 98 05/20/18 04:03 05/20/18 04:03 05/20/18 04:03 05/20/18 04:03 05/20/18 04:03 05/19/18 05/20/18 05/21/18 05:59 05:59 05:59 Intake Total 1775 Output Total 935 Balance 840 PT 19.5 SEC (12.0-15.0) H 05/19/18 21:40 INR 1.63 (0.83-1.16) H 05/19/18 21:40 hip and elbow XR reviewed chart reviewed op notes reviewed - Physical Exam Constitutional: appears nourished Cardiovascular: regular rate and rhythym, no murmur, rub, or gallop Respiratory: no respiratory distress, no rales or rhonchi, clear to auscultation Gastrointestinal: soft, non-tender abdomen, no palpable masses, No guarding, No rebound, No distension Musculoskeletal: other (motor intact in L hand/foot) ICD10 Worksheet Patient Problems: Problems Problem Status Onset Closed fracture of left olecranon process Acute Left displaced femoral neck fracture Acute Warfarin anticoagulation Acute
[2018-05-20 08:40] LABS: PLATELET COUNT 158 10^3/uL (150-400)
[2018-05-20 08:45] LABS: INR 1.88 (0.83-1.16); PROTIME(PATIENT) 21.7 SEC (12.0-15.0)
[2018-05-20] MEDS ORDERED: ENOXAPARIN 40 MG/0.4 ML SYR SC SCH ×2 (09:00→17:00)
[2018-05-20] MEDS ORDERED: QUINAPRIL HCL 5 MG PO SCH (09:00)
[2018-05-20] MEDS: METOPROLOL SUCCINATE XR 25 MG TAB PO SCH (09:04)
--- NOTE | 2018-05-20 09:49 | TRAUMAPN ---
Trauma Progress Note Assessment/Plan: 77yo F s/p mech fall c L olecranon fx (s/p ORIF) and L femoral neck Fx (s/p hemiarthroplasty) TERTIARY EXAM Neuro: AGUILAR, AO, exam non-focal. pain is controlled. Intact neurovac to both operative extremities Pulm: Stable on NC, discussed IS. Lungs otherwise clear CV: HDS Abdomen: soft, ND, NT. Tolerated Bkfst, bowel regimen Renal: voiding, will monitor Heme: 10 from 13, likely dilutional and ABLA. High risk for DVT, LMWH to start this evening Id: afebrile periop abx Ortho: Fx as above. 50% wt bearing to LLE, NWB LUE in sling Dispo: PT/OT. Patient lives in [place], will likely need SNF vs rehab when appropriate for dc Subjective: pain is controlled, feels well. Objective: Vital Signs Temp Pulse Resp BP Pulse Ox 36.4 C 73 15 135/68 H 98 05/20/18 08:14 05/20/18 08:14 05/20/18 08:14 05/20/18 08:14 05/20/18 08:14 Laboratory Results 05/20/18 08:24 05/20/18 08:24 05/19/18 05/20/18 05/21/18 05:59 05:59 05:59 Intake Total 1775 Output Total 935 100 Balance 840 -100 PT 21.7 SEC (12.0-15.0) H 05/20/18 08:24 INR 1.88 (0.83-1.16) H 05/20/18 08:24
[2018-05-20] MEDS ORDERED: WARFARIN SODIUM 4 MG TAB PO SCH (12:00)
[2018-05-20] MEDS: LISINOPRIL 5 MG TAB PO SCH (12:04)
--- NOTE | 2018-05-20 13:21 | SOAPPROG ---
<Roshni Helton S - Last Filed: 05/20/18 14:22> SOAP Progress Note Assessment/Plan: Assessment: POD #1 s/p left hip hemiarthroplasty and left olecranon ORIF: overall doing well, pain controlled. Plan: 50% WBAT to LLE. NWB to LUE. Maintain sling and abduction pillow with posterior hip precautions. Maintain dressing unless d/w our office first. Contact us with abnormal bleeding , oozing, discharge, change in heat/color around wound sites or of extremity. Maintain drain. Continue post-op antibiotics until drain is pulled. DVT Prophylaxis: Begin Lovenox 40mg SQ POD #1, resume Coumadin as prescribed at home per reccs of hospitalists. Appreciate their reccs. Continue to monitor PT/ INR per hospitalist recc. Dispo Plan: Lives in [place], likely will need SNF v rehab upon D/C. Patient/plan discussed and agreed upon with Dr. Crespo. Subjective: Doing well, alone in room, able to respond appropriately to questions. Has passed flatus, no BM. Denies fever, chills, NVD, change in heat/color of extremity or around wound site, cough, congestion, chest pain, SOB, dyspnea, worsening numbness/tingling, worsening change in distal ROM or strength, claudication. Has been compliant in sling and abduction pillow while in bed. Pain well controlled at this time. Objective: Vital Signs Temp Pulse Resp BP Pulse Ox 36.8 C 67 19 115/65 93 05/20/18 12:00 05/20/18 12:00 05/20/18 12:00 05/20/18 12:00 05/20/18 12:00 Laboratory Results 05/20/18 08:24 05/20/18 08:24 05/19/18 05/20/18 05/21/18 05:59 05:59 05:59 Intake Total 1775 350 Output Total 935 200 Balance 840 150 PT 21.7 SEC (12.0-15.0) H 05/20/18 08:24 INR 1.88 (0.83-1.16) H 05/20/18 08:24 A/O. NAD. Non-labored breathing. No diaphoresis. Afebrile. Able to respond appropriately to questions and commands. M/S: Left arm: in posterior LAS, all compartments soft. No abnormal bleeding/oozing/ discharge, change in heat/color around splint. Able to wiggle all fingers without difficulty, DNVI with no focal deficits, gross sensation intact with no deficits. Negative passive stretch of b/l upper extremities. Has been compliant in splint and no heavy lifting. Left hip: Wound site with no abnormal bleeding/oozing/discharge, change in heat/ color. Minimally TTP over incision site otherwise NTTP. Drain in place. AROM of lower extremities: full AROM distally from left hip on with 5/5 strength present b/l in distal lower extremities b/l, unable to test hip strength and AROM of left hip due to severe pain to patient, however she is able to attempt active hip extension and flexion. Calves soft/supple and NTTP b/l with TALIA hose on. Patient sitting in chair, therefore, SEDs are not on and pumping. Brisk cap refill b/l with negative b/l Homans. DNVI b/l in UE/LE with gross sensation intact and no signs of focal deficit. Negative passive stretch b/l. X-ray: 2 views of left olecranon show olecranon process fracture in good position/alignment with hardware in good position/alignment. 2 views of left hip show left hip hemiarthroplasty in good position/alignment. - Pending Discharge Pending Discharge Within 24 Hours: No ICD10 Worksheet Patient Problems: Problems Problem Status Onset Closed fracture of left olecranon process Acute Left displaced femoral neck fracture Acute Warfarin anticoagulation Acute <Mando Crespo - Last Filed: 05/20/18 15:02> SOAP Progress Note Assessment/Plan: Assessment: As above, doing well POD 1 s/p L elbow ORIF and L hip bipolar juan josé. Per PT, they anticipate good therapy potential and that she will be able to maintain 50% WB LLE and NWB LUE. DNVI BUE & BLEs, dsgs/splint c/d/i, no thigh hematoma, drain intact. BLEs w/o edema or calf TTP, negative George's. Post-op XRs reviewed and appropriate for both elbow and hip. Plan: As above. Continue proph IV cefazolin 1g Q8H while drain in place. Most often drain may be d/c'd tomorrow in a patient with anti-coagulation as she has been, however we will recheck drain outputs in AM. Continue drain until 12H output 30cc or less. Begin enox 40mg SQ at 5p today, warfarin this PM per Medicine team. SCDs/TEDs BLE's, ankle/foot ROM exercises, ICS x10 Q1H while awake. Continue PT/OT w/ WB precautions as above. Dispo pending family' s general plan, however, I have recommended she stay in this area ~2wks so that I can remove her rudy/sutures and complete first out-pt evaluation with repeat XRs. Please call with any questions. 05/20/18 14:55 Objective: Vital Signs Temp Pulse Resp BP Pulse Ox 36.8 C 67 19 115/65 93 05/20/18 12:00 05/20/18 12:00 05/20/18 12:00 05/20/18 12:00 05/20/18 12:00 Laboratory Results 05/20/18 08:24 05/20/18 08:24 05/19/18 05/20/18 05/21/18 05:59 05:59 05:59 Intake Total 1775 350 Output Total 935 200 Balance 840 150 PT 21.7 SEC (12.0-15.0) H 05/20/18 08:24 INR 1.88 (0.83-1.16) H 05/20/18 08:24
[2018-05-20] MEDS: OXYCODONE/APAP 5/325 TAB PO PRN ×2 (14:13→23:38)
--- NOTE | 2018-05-20 15:13 | ASMTCMCOM ---
CM Note CM Note Notes: 77[place], fell and fx L femur and L elbow. She has a Hx of Afib, Arthritis, HTN, HLD. Has had surgery. Therapies to eval for discharge needs, CM to follow. Date Signed: 05/20/2018 03:13 PM Electronically Signed By:Sary Mustafa LCSW
--- NOTE | 2018-05-20 17:30 | ASMTCMCOM ---
CM Note CM Note Notes: Family interested in patient going to the [facility] for Rehab. Referral sent. Date Signed: 05/20/2018 05:29 PM Electronically Signed By:Sary Mustafa LCSW
[2018-05-21] MEDS: OXYCODONE/APAP 5/325 TAB PO PRN (06:32)
[2018-05-21] MEDS: LISINOPRIL 5 MG TAB PO SCH (09:21)
[2018-05-21] MEDS: METOPROLOL SUCCINATE XR 25 MG TAB PO SCH (09:21)
[2018-05-21] MEDS: BALSALAZIDE DISODIUM 750 MG CAP PO SCH ×2 (09:22→21:07)
[2018-05-21] MEDS: FAMOTIDINE 20 MG TAB PO SCH ×2 (09:24→21:07)
[2018-05-21] MEDS: DORZOLAMIDE/TIMOLOL 10 ML OPHT.BTL EACHEYE SCH ×2 (09:26→21:06)
--- NOTE | 2018-05-21 09:38 | SOAPPROG ---
SOAP Progress Note Assessment/Plan: Assessment/Plan: POD #2 s/p left hip hemiarthroplasty and left olecranon ORIF. s /p fall at [employer] while watching grandson play football. Tolerating diet. Pain controlled. Understandably requiring a lot of help to mobilize. Home coumadin restarted--repeat INR today--close, but not yet therapeutic as of yesterday. Activity per ortho: 50% WBAT to LLE. NWB to LUE. Maintain sling and abduction pillow with posterior hip precautions. Dispo Plan: Lives in [place]. Plans to go to SNF here before returning home. Case management following. Would appreciate input from ortho regarding timing of d/ c. S: pain controlled. eating breakfast. pleasant, good attitude. O: alert, nad ncat ctab irregular rhythm abd soft, nt LUE in sling, bandaged BLEs wwp, dressings intact. 05/21/18 09:39 Objective: Vital Signs Temp Pulse Resp BP Pulse Ox 36.9 C 68 15 140/82 H 94 05/21/18 07:37 05/21/18 09:21 05/21/18 07:37 05/21/18 09:21 05/21/18 07:37 Laboratory Results 05/21/18 04:20 05/20/18 08:24 05/20/18 05/21/18 05/22/18 05:59 05:59 05:59 Intake Total 1775 550 Output Total 935 1155 Balance 840 -605 PT 21.7 SEC (12.0-15.0) H 05/20/18 08:24 INR 1.88 (0.83-1.16) H 05/20/18 08:24 ICD10 Worksheet Patient Problems: Problems Problem Status Onset Closed fracture of left olecranon process Acute Left displaced femoral neck fracture Acute Warfarin anticoagulation Acute
[2018-05-21 10:01] LABS: INR 2.46 (0.83-1.16); PROTIME(PATIENT) 26.6 SEC (12.0-15.0)
--- NOTE | 2018-05-21 11:55 | SOAPPROG ---
SOAP Progress Note Assessment/Plan: Assessment: POD #2 s/p left hip hemiarthroplasty and left olecranon ORIF: overall doing well, pain controlled. Plan: 50% WBAT to LLE. NWB to LUE. Maintain sling and abduction pillow with posterior hip precautions. Maintain dressing unless d/w our office first. Contact us with abnormal bleeding , oozing, discharge, change in heat/color around wound sites or of extremity. Drain has been removed by myself today, gauze placed over it. Now that drain has been removed can d/c post-op antibiotics. DVT Prophylaxis: Continue Lovenox 40mg SQ POD #1, resume Coumadin as prescribed at home per reccs of hospitalists. Appreciate their reccs. Continue to monitor PT/INR per hospitalist recc. Dispo Plan: Lives in [place], likely will need SNF v rehab upon D/C. She will stay in town for first post-op appt and will F/U with us for first 2 week appt. Patient/plan discussed and agreed upon with Dr. Crespo. 05/21/18 11:50 Subjective: Doing well, alone in room, able to respond appropriately to questions. Has passed flatus. Denies fever, chills, NVD, change in heat/color of extremity or around wound site, cough, congestion, chest pain, SOB, dyspnea, worsening numbness/tingling, worsening change in distal ROM or strength, claudication. Has been compliant in sling and abduction pillow while in bed. Pain well controlled at this time. Has been attempting to partially weight bear with PT/ OT. Objective: Vital Signs Temp Pulse Resp BP Pulse Ox 36.9 C 68 15 140/82 H 94 05/21/18 07:37 05/21/18 09:21 05/21/18 07:37 05/21/18 09:21 05/21/18 07:37 Laboratory Results 05/21/18 04:20 05/20/18 08:24 05/20/18 05/21/18 05/22/18 05:59 05:59 05:59 Intake Total 1775 550 Output Total 935 1155 200 Balance 840 -605 -200 PT 26.6 SEC (12.0-15.0) H 05/21/18 09:39 INR 2.46 (0.83-1.16) H 05/21/18 09:39 A/O. NAD. Non-labored breathing. No diaphoresis. Afebrile. Able to respond appropriately to questions and commands. M/S: Left arm: in posterior LAS, all compartments soft. No abnormal bleeding/oozing/ discharge, change in heat/color around splint. Able to wiggle all fingers without difficulty, DNVI with no focal deficits, gross sensation intact with no deficits. Negative passive stretch of b/l upper extremities. Has been compliant in splint and no heavy lifting. Left hip: Wound site with no abnormal bleeding/oozing/discharge, change in heat/ color. Minimally TTP over incision site otherwise NTTP. Drain in place and during this morning's visit I have removed the drain and placed a new dry dressing to the area; no abnormal bleeding/oozing/discharge upon drain removal. AROM of lower extremities: full AROM distally from left hip on with 5/5 strength present b/l in distal lower extremities b/l, hip strength: 5-/5 secondary to pain, AROM of left hip 0-90. Calves soft/supple and NTTP b/l with TALIA hose on. Patient sitting in chair, therefore, SEDs are not on and pumping. Brisk cap refill b/l with negative b/l Homans. DNVI b/l in UE/LE with gross sensation intact and no signs of focal deficit. Negative passive stretch b/l. Drain output: 55cc ocver 24 hrs therefore removed at today's visit. ICD10 Worksheet Patient Problems: Problems Problem Status Onset Closed fracture of left olecranon process Acute Left displaced femoral neck fracture Acute Warfarin anticoagulation Acute
[2018-05-21] MEDS ORDERED: WARFARIN SODIUM 4 MG TAB PO SCH (16:00)
--- NOTE | 2018-05-21 19:31 | HOSPPROG ---
Hospitalist Progress Note Assessment/Plan: * Hip fracture s/p hemiarthroplasty -50% WB LLE * Left olecranon fracture s/p ORIF -NWB to LUE * PAF -rate controlled on metoprolol -flipped back to afib this am - now NSR -resume warfarin * Colitis -balsalazide Subjective: No complaints. Objective: Vital Signs Temp Pulse Resp BP Pulse Ox 36.7 C 70 14 135/97 H 93 05/21/18 16:00 05/21/18 16:00 05/21/18 16:00 05/21/18 16:00 05/21/18 16:00 Laboratory Results 05/21/18 04:20 05/20/18 08:24 05/20/18 05/21/18 05/22/18 05:59 05:59 05:59 Intake Total 1775 550 240 Output Total 935 1155 400 Balance 840 -605 -160 PT 26.6 SEC (12.0-15.0) H 05/21/18 09:39 INR 2.46 (0.83-1.16) H 05/21/18 09:[address] - negative CXR viewed, my personal interpretation is - negative - Physical Exam Constitutional: no apparent distress, appears nourished, not in pain Cardiovascular: regular rate and rhythym, no murmur, rub, or gallop Respiratory: no respiratory distress, no rales or rhonchi, clear to auscultation Gastrointestinal: normoactive bowel sounds, soft, non-tender abdomen, no palpable masses Skin: no rashes or abrasions, no fluctuance, no induration Neurologic: AAOx3, sensation intact bilaterally Psychiatric: interacting appropriately, not anxious, not encephalopathic, thought process linear ICD10 Worksheet Patient Problems: Problems Problem Status Onset Closed fracture of left olecranon process Acute Left displaced femoral neck fracture Acute Warfarin anticoagulation Acute
[2018-05-21] MEDS: PRAVASTATIN SODIUM 20 MG TAB PO SCH (21:07)
[2018-05-21] MEDS: LATANOPROST 0.005% 2.5 ML OPHT DROPS EACHEYE SCH (21:10)
[2018-05-22 04:56] LABS: INR 2.79 (0.83-1.16); PROTIME(PATIENT) 29.3 SEC (12.0-15.0)
[2018-05-22 07:56] VITALS: BP 161/83
--- NOTE | 2018-05-22 08:04 | SOAPPROG ---
SOAP Progress Note Assessment/Plan: Assessment: POD #3 s/p left hip hemiarthroplasty and left olecranon ORIF: overall doing well, pain controlled. Plan: 50% WBAT to LLE. NWB to LUE. Maintain sling and abduction pillow with posterior hip precautions. Maintain dressing unless d/w our office first. Contact us with abnormal bleeding , oozing, discharge, change in heat/color around wound sites or of extremity. Drain no longer in place. DVT Prophylaxis: Continue Lovenox 40mg SQ, resume Coumadin as prescribed at home per reccs of hospitalists. Appreciate their reccs. Continue to monitor PT/ INR per hospitalist recc. Dispo Plan: Lives in [place], likely will need SNF v rehab upon D/C. She will stay in town for first post-op appt and will F/U with us for first 2 week appt. Questions/concerns call our office at [phone]. Patient/plan discussed and agreed upon with Dr. Crespo. Subjective: Doing well, alone in room, able to respond appropriately to questions. Has passed flatus and BM; eating well. Denies fever, chills, NVD, change in heat/ color of extremity or around wound site, cough, congestion, chest pain, SOB, dyspnea, worsening numbness/tingling, worsening change in distal ROM or strength , claudication. Has been compliant in sling and abduction pillow while in bed. Pain well controlled at this time. Has been attempting to partially weight bear on LLE with PT/OT. Compliant with NWB to LUE. Objective: Vital Signs Temp Pulse Resp BP Pulse Ox 36.5 C 74 14 161/83 H 95 05/22/18 07:46 05/22/18 07:46 05/22/18 07:46 05/22/18 07:46 05/22/18 07:46 Laboratory Results 05/22/18 04:09 05/22/18 04:09 05/21/18 05/22/18 05/23/18 05:59 05:59 05:59 Intake Total 550 1390 Output Total 1155 1500 200 Balance -605 -110 -200 PT 29.3 SEC (12.0-15.0) H 05/22/18 04:09 INR 2.79 (0.83-1.16) H 05/22/18 04:09 A/O. NAD. Non-labored breathing. No diaphoresis. Afebrile. Able to respond appropriately to questions and commands. M/S: Left arm: in posterior LAS, all compartments soft. No abnormal bleeding/oozing/ discharge, change in heat/color around splint. Able to wiggle all fingers without difficulty, DNVI with no focal deficits, gross sensation intact with no deficits. Negative passive stretch of b/l upper extremities. Splint in good position. Left hip: Wound site with no abnormal bleeding/oozing/discharge, change in heat/ color. NTTP over incision site. Drain no longer in place. AROM of lower extremities: full AROM distally from left hip on with 5/5 strength present b/l in distal lower extremities b/l, hip strength: 5-/5 secondary to pain, AROM of left hip 0-90. Calves soft/supple and NTTP b/l with TALIA hose on. Patient sitting in chair, therefore, SEDs are not on and pumping. Brisk cap refill b/l with negative b/l Homans. DNVI b/l in UE/LE with gross sensation intact and no signs of focal deficit. Negative passive stretch b/l. ICD10 Worksheet Patient Problems: Problems Problem Status Onset Closed fracture of left olecranon process Acute Left displaced femoral neck fracture Acute Warfarin anticoagulation Acute
[2018-05-22] MEDS: METOPROLOL SUCCINATE XR 25 MG TAB PO SCH (08:27)
[2018-05-22] MEDS: LISINOPRIL 5 MG TAB PO SCH (08:27)
[2018-05-22] MEDS: OXYCODONE/APAP 5/325 TAB PO PRN (08:28)
[2018-05-22] MEDS: BALSALAZIDE DISODIUM 750 MG CAP PO SCH (08:28)
[2018-05-22] MEDS: FAMOTIDINE 20 MG TAB PO SCH (08:29)
[2018-05-22] MEDS: DORZOLAMIDE/TIMOLOL 10 ML OPHT.BTL EACHEYE SCH (08:32)
--- NOTE | 2018-05-22 09:49 | PDIAF ---
- Diagnosis Diagnosis: hip fracture, olecrenon fracture Code Status: Full Code - Medication Management Discharge Medications: Medications to Continue on Transfer Balsalazide Disodium [Colazal (*)] 2,250 mg PO BID 05/19/18 [Last Taken 08:00] Dorzolamide/Timolol [Cosopt (*)] 1 drops EACHEYE BID 05/19/18 [Last Taken 08:00] Latanoprost 0.005% [Xalatan 0.005% (*)] 1 drops EACHEYE HS 05/19/18 [Last Taken 05/18/18 21:00] Metoprolol Succinate Xr [Toprol Xl 25 mg (*)] 25 mg PO DAILY 05/19/18 [Last Taken 05/19/18 08:00] Pravastatin Sodium 20 mg PO HS 05/19/18 [Last Taken 05/18/18 21:00] Quinapril HCl 5 mg PO DAILY 05/19/18 [Last Taken 05/19/18 08:00] Triamcinolone Acetonide [Nasacort] 1 spray EACHNARE DAILY PRN 05/19/18 [Last Taken 05/19/18 08:00] Warfarin Sodium [Coumadin 4MG (*)] 8 mg PO SUMOTUTHFRSA@12 05/19/18 [Last Taken 05/18/18 12:00] Warfarin Sodium [Coumadin 4MG (*)] 10 mg PO WE@12 05/19/18 [Last Taken 05/16/18] oxyCODONE/APAP 5/325 [Percocet 5/325 (*)] 1 - 2 tab PO Q4HRS PRN #20 tab [Last Taken Unknown] Discharge Medications: Refer to the Discharge Home Medication list for PRN reason. - Orders Services needed: Physical Therapy, Occupational Therapy Diet Recommendation: no restrictions on diet Additional Instructions: Per Ortho: Non-weight bearing left upper extremity with use of sling. 50% weight bearing left lower extremity with posterior hip precautions. Maintain dry dressing till seen by our office. Continue anticoagulation per hospitalist's recommendation. Call Dr. Crespo's office at [phone] to schedule first post-operative appointment. - Follow Up Care Current Providers and Referrals: KENAN BLAIR [Other] - As per Instructions Mando Crespo MD [Medical Doctor] -
--- NOTE | 2018-05-22 10:14 | ASMTLACE ---
LACE Length of stay for Answers: 3 days current admission Acuity / Level of Answers: Yes Care: Did the patient have an inpatient admission? Comorbidities - select Answers: Other Notes: Afib, HTN, HLD all that apply # of Emergency department Answers: 1-2 visits in the last 6 months Score: 8 Date Signed: 05/22/2018 10:13 AM Electronically Signed By:CONCHITA Rivas
--- NOTE | 2018-05-22 10:47 | ASMTCMCOM ---
CM Note CM Note Notes: Pt medically stable for d/c to [facility]. RN Hue calling report. Stretcher transport scheduled for 12 by Justina in admissions and copy of PCS in chart. Pt updated. Date Signed: 05/22/2018 10:46 AM Electronically Signed By:CONCHITA Rivas
--- NOTE | 2018-05-22 13:16 | TRAUMAPN ---
Trauma Progress Note Assessment/Plan: Assessment/Plan: POD #3 s/p left hip hemiarthroplasty and left olecranon ORIF. s /p fall at [employer] while watching grandson play football. Pain controlled Regular diet A fib - restarted home coumadin Ortho - 50% WBAT to LLE. NWB to LUE. Maintain sling and abduction pillow with posterior hip precautions. Dispo: DC to SNF here before returning home to [place]. Additionally seen by Dr. Mckeon. S: pain controlled. eating breakfast. pleasant, good attitude. O: General: Comfortable, no acute distress, accompanied by family, eating breakfast HEENT: Normocephalic, atraumatic, no hearing deficits, pupils equal and round, no scleral icterus, mucous membranes moist Respiratory: no increased work of breathing Abdomen: Soft, nondistended, nontender Musculoskeletal: Left upper extremity in sling, bandaged, wiggles fingers easily, fingers warm, sensation intact. Dressings left hip intact Objective: Vital Signs Temp Pulse Resp BP Pulse Ox 36.5 C 74 14 161/83 H 95 05/22/18 07:46 05/22/18 08:27 05/22/18 07:46 05/22/18 08:27 05/22/18 07:46 Laboratory Results 05/22/18 04:09 05/22/18 04:09 05/21/18 05/22/18 05/23/18 05:59 05:59 05:59 Intake Total 550 1390 250 Output Total 1155 1500 200 Balance -605 -110 50 PT 29.3 SEC (12.0-15.0) H 05/22/18 04:09 INR 2.79 (0.83-1.16) H 05/22/18 04:09
--- NOTE | 2018-05-22 14:41 | ASDISCHSUM ---
Discharge Information Plan Status:SNF Medically Cleared to Leave: Discharge Date:05/22/2018 12:26 PM CM D/C Disposition:Retirement Facility ADT D/C Disposition:Retirement Facility Projected Discharge Date:05/22/2018 11:00 AM Transportation at D/C:Wheelchair Van Discharge Delay Reason: Follow-Up Date:05/22/2018 11:00 AM Discharge Slot: Final Diagnosis:Fall: L femur and elbow fx's Placement Information Referral Type:*Fpc/SNF Referral ID:[id number] Provider Name:[facility] Address 1:[address] [facility] Address 2: City:[place] Selection Factors: State:[place] Patient Contact Information Contact Name:JAZZY Relationship: Address:[address] [facility] [address] Work Phone: [facility]:[place] Alternate Phone: [facility]/Zip Code:[place] [address] Email: Financial Information Financial Class:Medicare Primary Plan Desc:MEDICARE INPATIENT Primary Plan Number:[id number] Secondary Plan Desc:[facility] Secondary Plan Number:[id number] Assessment Information [facility] CM Progress Note CM Note CM Note Notes: 77[place], fell and fx L femur and L elbow. She has a Hx of Afib, Arthritis, HTN, HLD. Has had surgery. Therapies to eval for discharge needs, CM to follow. Date Signed: 05/20/2018 03:13 PM Electronically Signed By:Sary Mustafa LCSW LACE LACKristel Length of stay for Answers: 3 days current admission Acuity / Level of Answers: Yes Care: Did the patient have an inpatient admission? Comorbidities - select Answers: Other Notes: Afib, HTN, HLD all that apply # of Emergency department Answers: 1-2 visits in the last 6 months Score: 8 Date Signed: 05/22/2018 10:13 AM Electronically Signed By:CONCHITA Rivas [facility] CM Progress Note CM Note CM Note Notes: Family interested in patient going to the [facility] for Rehab. Referral sent. Date Signed: 05/20/2018 05:29 PM Electronically Signed By:Sary Mustafa LCSW [facility] CM Progress Note CM Note CM Note Notes: Pt medically stable for d/c to [facility]. MARLIN Swann calling report. Stretcher transport scheduled for 12 by Justina in admissions and copy of PCS in chart. Pt updated. Date Signed: 05/22/2018 10:46 AM Electronically Signed By:CONCHITA Rivas Intervention Information Intervention Type:*IM-Signed Date of Service:05/22/2018 11:52 AM Patient Type:Inpatient Staff Member:Nellie Franks Hours: Discipline: Severity: Comment:
--- NOTE | 2018-05-23 04:29 | GDS ---
DISCHARGE DIAGNOSES: 1. Hip fracture, status post hemiarthroplasty. 2. Left olecranon fracture, status post open reduction, internal fixation. 3. Paroxysmal atrial fibrillation. 4. History of colitis. HISTORY: The patient is a 77-year-old female visiting from [place] for a college football game when she fell sustaining a hip fracture and a left olecranon fracture. She underwent surgery for hemiarth roplasty of the hip and ORIF of the arm. She is to be 50% weightbearing on the left lower extremity, nonweightbearing to left upper extremity. She is transferring to a local residential facility t o rehab until she is strong enough to return back to [place]. Her chronic medical problems, such as paroxysmal atrial fibrillation and colitis were stable througho ut this hospitalization. She was continued on home medications. DISCHARGE MEDICATIONS: Please see computer record for full detailed list. New medication: 1. Percocet 1-2 p.o. q.4 hours as needed for pain. 2. She is on chronic warfarin for atrial fibrillation, and that will also serve as DVT prophylaxis f or her hip fracture. She is therapeutic on warfarin at the time of hospital discharge. ADDITIONAL DISCHARGE INSTRUCTIONS: 1. Nonweightbearing to the left upper extremity with use of a sling. 2. 50% weightbearing to left lower extremity with posterior hip precautions. 3. Follow up with Dr. Crespo. Greater than 30 minutes' time was spent arranging this discharge. Patient seen and examined by me on the day of discharge. /[id number]
[2018-05-23] MEDS ORDERED: WARFARIN SODIUM 4 MG TAB PO SCH (16:00)
--- NOTE | 2018-05-24 12:48 | CPEKG ---
Test Reason : OPEN Blood Pressure : / mmHG Vent. Rate : 063 BPM Atrial Rate : 063 BPM P-R Int : 152 ms QRS Dur : 157 ms QT Int : 461 ms P-R-T Axes : 078 -47 085 degrees QTc Int : 472 ms Sinus rhythm Left bundle branch block Confirmed by Otilia Liz ([id number]) on 05/24/2018 12:48:12 PM Referred By: Confirmed By:Otilia Liz
== END 2018-05-22 12:26 | DRG 470 ==
LOC: F3N 05-20 01:10
PROVIDERS: ADMIT Surgery; ATTEND Surgery
DX: S72.002A Fracture of unspecified part of neck of left femur, initial encounter for closed fracture (principal); S52.022A Displaced fracture of olecranon process without intraarticular extension of left ulna, initial encounter for closed fracture; W18.31XA Fall on same level due to stepping on an object, initial encounter; Y92.214 College as the place of occurrence of the external cause; M85.88 Other specified disorders of bone density and structure, other site; I48.91 Unspecified atrial fibrillation; K52.9 Noninfective gastroenteritis and colitis, unspecified; I10 Essential (primary) hypertension; E78.5 Hyperlipidemia, unspecified; Z79.01 Long term (current) use of anticoagulants
CPT/HCPCS: 96374; 97162-GP; 97165-GO; 97530-GP; 97535-GO; C1713; G8978-GP-CL; G8979-GP-CJ; G8987-GO-CM; G8988-GO-CK; J0171; J0690; J1100; J1170; J1650; J1885; J2001; J2405; J2704; J2795; J3010; J3360; P9016; P9017